=== PATIENT | male | born 1960 | race Caucasian/White ===

== ENCOUNTER → 2019-06-03 | Outpatient (CLI) | payer BC ==
[2019-06-03 09:02] LABS: Basophils # (A) 0.1 k/uL (0-0.2); Basophils % (A) 1 %; Eosinophils # (A) 0.4 k/uL (0-0.7); Eosinophils % (A) 6 %; HCT 47.8 % (39.0-53.0); HGB 15.4 gm/dL (13.0-17.5); Lymphocytes % (A) 13 %; MCH 29.5 pg (25.0-35.0); MCHC 32.2 g/dL (31.0-37.0); MCV 91.6 fL (80.0-100.0); Mean Platelet Volume 7.8; Monocytes # (A) 0.4 k/uL (0-1.0); Monocytes % (A) 6 %; Neutrophils # (A) 5.3 k/uL (1.3-7.7); Neutrophils % (A) 73 %; Platelet Count 263 k/uL (150-450); RBC 5.22 m/uL (4.30-5.90); RDW 13.5 % (11.5-15.5); WBC 7.4 k/uL (3.8-10.6)
[2019-06-03 09:10] LABS: Appearance,Urine Clear (Clear); Bilirubin,Urine Negative (Negative); Blood,Urine Negative (Negative); Color,Urine Yellow; Glucose,Urine (UA) Negative (Negative); Ketones,Urine Negative (Negative); Leukocyte Esterase,Urine Negative (Negative); Nitrite,Urine Negative (Negative); Protein,Urine Trace (Negative); Specific Gravity,Urine 1.021 (1.001-1.035); Urobilinogen,Urine <2.0 mg/dL (<2.0)
[2019-06-03 09:14] LABS: INR 0.9 (<1.2); Prothrombin Time 9.5 sec (9.0-12.0)
[2019-06-03 13:54] LABS: ALT 20 U/L (4-49); AST 28 U/L (17-59); African American GFR (CKD) >90 (>60 ml/min/1.73 sqM); Albumin 4.2 g/dL (3.5-5.0); Alkaline Phosphatase 107 U/L (38-126); Anion Gap 5 mmol/L; Blood Urea Nitrogen 19 mg/dL (9-20); Calcium 9.4 mg/dL (8.4-10.2); Carbon Dioxide 32 mmol/L (22-30); Chloride 101 mmol/L (98-107); Glucose 132 mg/dL (74-99); Non-African American GFR(CKD) >90 (>60 ml/min/1.73 sqM); Sodium 138 mmol/L (137-145); Total Bilirubin 0.7 mg/dL (0.2-1.3); Total Protein 7.1 g/dL (6.3-8.2)
[2019-06-03 13:56] LABS: Potassium 4.5 mmol/L (3.5-5.1)
[2019-06-03 15:15] LABS: Cholesterol 268 mg/dL (<200); HDL Cholesterol 40 mg/dL (40-60); LDL Cholesterol,Calculated 190 mg/dL (0-99); Triglycerides 188 mg/dL (<150)
[2019-06-03 18:26] LABS: Hemoglobin A1C 5.3 % (4.0-6.0)
== END | disposition home or self-care (01) ==
LOC: LABWHC1 08:31
PROVIDERS: ATTEND Orthopaedic Surgery Sports Medicine
DX: Z01.812 Encounter for preprocedural laboratory examination (principal); M17.12 Unilateral primary osteoarthritis, left knee; I10 Essential (primary) hypertension
CPT/HCPCS: 36415; 80053; 80061; 81003; 83036; 84443; 85025; 85610; 85730; 87070

== ENCOUNTER 2019-06-15 11:53 | Day surgery (SDC) | payer BC ==
[2019-06-09 11:10] VITALS: BMI 40.0
[~2019-06-15 11:53] MED LIST: ACETAMINOPHEN TAB 500 MG TAB PO ONE; DEXAMETHASONE SOD PHOSPHATE 10 MG/ML 1 ML VIAL IV ONE; GABAPENTIN 300 MG CAP PO ONE; HYDROmorphone 0.5 MG/0.5 ML SYRINGE IVP PRN; LIDOCAINE 1% 20 ML VIAL (10MG/ML) FOR IV START INTRADERMA PRN; MELOXICAM 7.5 MG TAB PO ONE; MIDAZOLAM 2 MG/2 ML VIAL IV PRN; ONDANSETRON 4 MG/2 ML VIAL IVP ONE; ROPIVACAINE 246.25 MG, EPINEPHrine 0.5 MG, KETOROLAC 30 MG, cloNIDine HCL/PF 80 MCG, WA... MISCELLANE ONE; SCOPOLAMINE 1.5MG/72HR PATCH TRANSDERM ONE; TRANEXAMIC ACID 1,000 MG in SODIUM CHLORIDE 0.9% 100 ML IVPB ONE; ceFAZolin 3 GM in SODIUM CHLORIDE 0.9% 100 ML IVPB ONE
[2019-06-15] MEDS: LACTATED RINGERS 1,000 ML IV SCH ×2 (12:40→19:17)
--- NOTE | 2019-06-15 14:20 | P.ANPRN ---
Procedure Note - Anesthesia - Nerve Block Performed Left Adductor Canal Infusion Time Out Performed: Yes Date of Procedure: 06/15/19 Procedure Start Time: 12:44 Procedure Stop Time: 12:54 Location of Patient: PreOp Indication: Acute Post-Operative Pain, Requested by Surgeon Sedation Type: Sedate with meaningful contact maintained Preparation: Sterile Prep Position: Supine Catheter: Indwelling Needle Types: Pajunk Needle Gauge: 21 Ultrasound used to visualize needle placement: Yes Ultrasound used to observe medication spread: Yes Blood Aspirated: No Pain Paresthesia on Injection Noted: No Resistance on Injection: Normal Image Stored and Saved: Yes Events: Uneventful and Well Tolerated (Ropivacaine 0.5% 20 mL plus dexamethasone 4 mg)
[2019-06-15] MEDS ORDERED: PHENYLEPHRINE-0.9% NACL SYG 1 MG/10 ML SYRINGE ONE (14:24)
[2019-06-15] MEDS ORDERED: KETAMINE 10 MG/ML 20 ML VIAL ONE (14:24)
[2019-06-15] MEDS ORDERED: TRANEXAMIC ACID 1,000 MG/10 ML VIAL ONE (14:24)
[2019-06-15] MEDS ORDERED: SODIUM CHLORIDE 0.9% 100 ML BAG ONE (14:24)
[2019-06-15] MEDS ORDERED: MIDAZOLAM 2 MG/2 ML VIAL ONE (14:24)
[2019-06-15] MEDS ORDERED: fentaNYL (PF) 50 MCG/ML 2 ML AMP ONE (14:24)
[2019-06-15] MEDS ORDERED: PROPOFOL 10 MG/ML 20 ML VIAL IV ONE (14:24)
[2019-06-15] MEDS ORDERED: LACTATED RINGERS 1,000 ML IV ONE (15:50)
[2019-06-15] MEDS ORDERED: ROPIVACAINE 0.2%-NS ON-Q PUMP 1,090 MG, EMPTY PAIN BALL 1 EACH MISCELLANE PRN (16:52)
[2019-06-15] MEDS ORDERED: hydrOXYzine PAMOATE 25 MG CAP PO PRN (16:54)
[2019-06-15] MEDS ORDERED: ONDANSETRON 4 MG/2 ML VIAL IVP PRN (16:54)
[2019-06-15] MEDS ORDERED: NALOXONE 0.4 MG/ML 1 ML VIAL IV PRN (16:54)
[2019-06-15] MEDS ORDERED: HYDROcodone/APAP 5-325MG 1 EACH TAB PO PRN (16:54)
[2019-06-15] MEDS ORDERED: HYDROmorphone 1 MG/ML 1 ML SYRINGE IVP PRN (16:54)
[2019-06-15] MEDS ORDERED: HYDROmorphone 0.5 MG/0.5 ML SYRINGE IVP PRN ×2 (16:54)
--- NOTE | 2019-06-15 17:11 | XR ---
EXAMINATION TYPE: XR knee limited LT DATE OF EXAM: 06/15/2019 COMPARISON: NONE HISTORY: Postop TECHNIQUE: 2 views FINDINGS: There is left knee prosthesis. Components are in anatomic position. IMPRESSION: No complicating process seen.
[2019-06-15 17:17] VITALS: RESP 16
[2019-06-15] MEDS ORDERED: SENNOSIDES-DOCUSATE SODIUM 1 EACH TAB PO SCH (21:00)
[2019-06-15] MEDS: ASPIRIN 325 MG TAB PO SCH (21:39)
[2019-06-15] MEDS: ceFAZolin 3 GM in SODIUM CHLORIDE 0.9% 100 ML IVPB SCH (23:08)
--- NOTE | 2019-06-15 23:48 | OP ---
OPERATIVE REPORT DATE OF PROCEDURE: 06/15/2019 SURGEON: Denys Brizuela MD. AUTOMOTIVE PRODUCTION WORKER: Killian lAegre PA-C PREOPERATIVE DIAGNOSIS: Left knee osteoarthrosis. POSTOPERATIVE DIAGNOSIS: Left knee osteoarthrosis. OPERATION: Left total knee arthroplasty. ANESTHESIA: Spinal with sedation. ESTIMATED BLOOD LOSS: 100 mL. TOURNIQUET: Tourniquet time was 69 minutes at 250 mmHg. COMPLICATIONS: None apparent. DRAINS: None. DISPOSITION: Post-Anesthesia Care Unit. INDICATIONS: Dharmesh is a 58-year-old male with longstanding history of left knee pain. History and physical examination are consistent with advanced left knee osteoarthrosis. He has been through significant nonoperative management up to this point. Further treatment options were discussed and he decided to go forward with left total knee arthroplasty. The risks of the procedure were discussed with him in detail. These risks include but are not limited to risk of infection, nerve damage, bleeding, pain, and a small risk of deep vein thrombosis which could lead to fatal pulmonary embolism. There is also risk of loosening of the implant which could require revision operation. The patient understands these risks. All of his questions were answered to his satisfaction. Appropriate informed consent was obtained. DESCRIPTION OF THE PROCEDURE: The patient was identified in the preoperative holding area. Surgical site was marked by both the patient and myself. He was given 3 grams of Ancef IV for prophylactic purposes. He was then transferred to the operative suite. He was placed supine on the operating room table. Spinal anesthetic was then administered and dosed per the anesthesia department without apparent complication. Examination under anesthesia was then performed. The patient was approximately 5 degrees shy of full extension. He had 90 degrees of flexion, and the medial collateral ligament, lateral collateral ligament and posterior cruciate ligaments were stable. The tourniquet was then placed high on the left upper thigh, well padded in preparation for surgery. The patient's left lower extremity was then prepped and draped in the usual sterile fashion. A standard surgical pause was then undertaken to ensure that we were operating on the correct site and that appropriate preoperative antibiotics had been given. All staff in the room were in agreement and we proceeded. The outlines of the patella were marked with a surgical pen. A planned 12 cm vertical incision centered over the patella was marked with a surgical pen. The leg was then exsanguinated with an Esmarch dressing. The knee was then flexed and the tourniquet was inflated to 250 mmHg. The total tourniquet time for the procedure was 69 minutes. Incision was then made with a 10-blade scalpel. Dissection was carried down sharply to the overlying fascia. Great care was taken to minimize the skin flaps. The knee was then exposed using a standard medial parapatellar approach. A small cuff of quadriceps tendon was then left for suturing. He was in a bit of varus preoperatively. A standard medial release was then made. The superficial medial collateral ligament was dissected off of the bone around to the posterior aspect of the proximal tibia. The medial meniscus was then excised as well. The lateral meniscus was also released anteriorly. The leg was then externally rotated. The patella was everted. The knee was flexed. The retractors were then placed to protect the collateral ligaments. I then proceeded to remove the infrapatellar fat pad. This was excised sharply tangentially with the fibers of the patellar tendon. I then proceeded to remove peripheral osteophytes. This was done with a rongeur. I then proceeded with the distal femoral resection. He did have small flexion and contraction. A planned 11 mm resection was then done. The femoral canal was then entered in the midline of the femur approximately 10 mm anterior to the origin of the posterior cruciate ligament. The josé luis was then advanced down to the center of the femur and placed intramedullary. Based on the preoperative radiographs, the angle between the anatomic and mechanical axes of the femur was approximately 4 to 5 degrees. The valgus angle of the distal femoral cutting guide was then set at 4 degrees for the left knee. The distal femoral cutting guide was then advanced over the intramedullary josé luis. This was seated firmly against the femur. I then, as mentioned, planned to take 11 mm off the distal femur. The cutting block was then secured onto the femur with pins. The jig was then removed. The distal femoral cut was made through the slot of the block. The pins were then removed. The distal femoral cutting block was removed. The accuracy of the distal femoral cuts was checked with 2 flat bars. I then proceeded with femoral sizing. The posterior referencing sizing guide was held firmly against the resected distal surface of the femur. The posterior condyles were resting on the posterior plane of the guide. The sizing stylus was then placed onto the anterior femur. The size was measured as a size 9. I then assessed for femoral rotation. The plan was for 3 degrees of external rotation. Three degrees of external rotation was placed onto the jig. These holes were then marked. I then confirmed the rotation by 3 separate methods. This was done using the epicondylar axis as well as Whitesides line and posterior referencing. It was deemed that the external rotation was proper. I then went forward with placing the femoral cutting block. This was placed over the previously placed pin holes. The César wing was then placed onto the anterior slots to ensure that we would not notch the anterior femur with the anterior femoral cut. I then proceeded with the anterior femoral cut. This was flush with the anterior cortex of the femur. The posterior cuts were then made followed by the anterior chamfer cut and then the posterior chamfer cut. The cutting block was then removed. Throughout the resection, the collateral ligaments were protected with retractors. I then placed a trial size 9 femur. It fit very nicely medial to lateral and fit flush with the distal end of the femur. The drill holes were then made. I then proceeded with the tibial cut. I planned for a cruciate-retaining knee. The guide was placed and set for varus, valgus and for slope. The height was set for an approximate 2 mm resection from the medial tibial plateau, which was the lower side. I was happy with the alignment and the amount of resection. The cutting block was then pinned to the proximal tibia. The alignment josé luis was removed and the proximal tibia was resected with a reciprocating saw. Again this was done with retractors protecting the collateral ligaments as well as the posterior cruciate ligament. I then proceeded to evaluate the flexion and extension gaps. A 10 mm block was then placed. The flexion and extension gaps were equal. I then proceeded with resection of the posterior osteophytes. He had very extensive posterior osteophytes. This was done using a curved osteotome. This resected the posterior osteophytes, and posterior capsule stripping was done off the posterior aspect of the femur at this time. The osteophytes were then removed. I then proceeded with resection of the patella. The thickness of the patella was measured using the caliper. The thickness of the patella was 26 mm. The thickness of the anticipated patellar dome was taken into account. The resection was then performed and confirmed to be equal in 4 quadrants using a caliper. Approximately 14 mm of bone remained after resection. A 35 x 9 mm standard patellar trial was then placed. The holes were drilled and the trial was then placed. I then proceeded with sizing the tibial plate. A size G tibial plate fit very nicely. I then placed the trial femur, the tibial tray and the patellar button. A 10 mm trial tibial insert was also placed. The components fit very nicely. He had full extension and flexion. The extension and flexion gaps were equal and stable to both varus and valgus stress. The patella tracked appropriately. Tibial tray rotation was marked with a Bovie. This was externally rotated properly. I then proceeded with tibial preparation. I first drilled the femoral holes and removed the femoral component. The tibial tray was then set for proper external rotation as well as mediolateral placement onto the tibia. It was then pinned into place. I then proceeded with punching the keel. I then decided to proceed with cementing of all of our components. The knee was thoroughly irrigated with sterile saline solution via pulse lavage. The lateral geniculate artery was identified and cauterized. All blood was removed from the bone of the tibia, femur and patella with pulse lavage. I then proceeded with cementing. Two packs of antibiotic bone cement were prepared on the back table by the surgical technology instructor. I then proceeded with cementing of the tibia first. The cement was impacted into the keel as well as deeply seated into the bone. A second coat of cement was then placed. The tibia was then impacted into place. Excess cement was removed with Jennifer's and Joker's. I then proceeded with cementing of the femoral component. The femoral component was also cemented using standard technique. Excess cement was removed. A 10 mm trial insert was then placed into the knee. It was brought into full extension with a constant axial load placed until the cement had hardened. The patellar component was then cemented. This was held firmly with a compressive device until the cement had dried. When the cement had dried, the knee was taken out of extension. All excess cement was removed from around the prosthesis. I then trialed with a 10 mm insert. The flexion and extension gaps were appropriate. The knee was stable. It came into full extension. I decided to go forward with a 10 mm cross-linked cruciate-retaining tibial insert. Polyethylene was then placed onto the tibial tray and locked into place. The knee was then reduced. The knee was again further irrigated with sterile saline solution with antibiotic added. The tourniquet was then deflated. The total tourniquet time for the procedure was 69 minutes at 250 mmHg. Final components were a Cecy Persona size 9 cruciate-retaining femoral component, a size G tibial tray, a 10 mm medial-congruent cruciate-retaining polyethylene insert, and a 35 x 9 mm patella. I then proceeded with closure. Again the knee was thoroughly irrigated. The quadriceps tendon and the medial retinaculum were reapproximated with a #2 Ethibond suture. The extensor mechanism was then closed with a running #2 Quill suture. Subcutaneous tissues were closed with 2-0 Vicryl interrupted suture. The skin was closed with a running 3-0 Quill suture. Dermabond was applied to the incision. Sterile compressive dressings were then applied. All sponge and needle counts were deemed correct prior to closure. The patient tolerated the procedure without apparent complication. He was transferred to the recovery room in stable condition. MMCHELI / SOON: [id number] /
[2019-06-15] MEDS: HYDROcodone/APAP 5-325MG 1 EACH TAB PO PRN (23:58)
--- NOTE | 2019-06-16 02:24 | P.CONS ---
History of Present Illness - Reason for Consult Consult date: 06/15/19 medical management Requesting physician: Denys Brizuela - Chief Complaint Consult medical management - History of Present Illness The patient is a 58-year-old male with a past medical history of essential hypertension and severe left knee osteoarthritis who is admitted to the primary orthopedic service and is postop day #0 after having a left total knee arthroplasty secondary to severe left knee osteoarthritis that have been refractory to conventional nonsurgical treatment methods. The patient is doing well and he denies taking his daily medications this morning, he denies any chest pain and denies shortness of breath, he has not been up and ambulatory, he is able to wiggle his toes. Review of Systems Pertinent positives per HPI all other review of system is otherwise negative Past Medical History Past Medical History: Hypertension, Osteoarthritis (OA) History of Any Multi-Drug Resistant Organisms: None Reported Past Surgical History: Orthopedic Surgery Additional Past Surgical History / Comment(s): left knee arthroscopy x3, Past Anesthesia/Blood Transfusion Reactions: No Reported Reaction Past Psychological History: No Psychological Hx Reported Smoking Status: Former smoker Past Alcohol Use History: Occasional Additional Past Alcohol Use History / Comment(s): quit smoking 15 yrs ago, smoked for 6-7 yrs, < 1 PPD Past Drug Use History: Marijuana Additional Drug Use History / Comment(s): occ use - Past Family History Mother Family Medical History: Cancer Medications and Allergies Home Medications Medication Instructions Recorded Confirmed Type Hydrochlorothiazide [Hydrodiuril] 12.5 mg PO DAILY 06/09/19 06/15/19 History traMADol HCL [Ultram] 50 mg PO QID PRN 06/09/19 06/15/19 History Allergies Allergy/AdvReac Type Severity Reaction Status Date / Time No Known Allergies Allergy Verified 06/15/19 12:32 Physical Exam Vitals: Vital Signs Temp Pulse Pulse Resp BP Pulse Ox 06/15/19 17:18 73 16 137/74 98 06/15/19 17:03 78 16 144/76 98 06/15/19 16:48 97.1 F L 88 20 129/71 96 06/15/19 12:55 74 16 168/96 98 06/15/19 12:35 97.7 F 97 18 180/109 95 Intake and Output 06/15/19 06/15/19 06/15/19 06:59 14:59 22:59 Intake Total 1100 600 Output Total 100 Balance 1100 500 Intake: IV 1100 600 Output: Estimated Blood Loss 100 Other: Weight 138 kg 138 kg Constitutional: No acute distress, conversant, pleasant Eyes: Anicteric sclerae, moist conjunctiva, no lid-lag, PERRLA ENMT: NC/AT,Oropharynx clear, no erythema, exudates Neck:Supple, FROM, no masses, or JVD, No carotid bruits; No thyromegaly Lungs: Clear to auscultation, Clear to percussion, Normal respiratory effort, no accessory muscle use Cardiovascular: Heart regular in rate and rhythm, No murmurs, gallops, or rubs no peripheral edema Abdominal: Soft Nontender, nom distended, no guarding, no rebound or rigidity, Normoactive bowel sounds No hepatomegaly, No splenomegaly, No palpable mass No abdominal wall hernia noted Skin: Normal temperature, tone, texture, turgor, No induration No subcutaneous nodules, No rash, lesions, No ulcers Extremities:No digital cyanosis No clubbing, Pedal pulses intact and symmetrical Radial pulses intact and symmetrical, No calf tenderness, neurovascularly intact, able to wiggle his toes Psychiatric: Alert and oriented to person, place and time, Appropriate affect Intact judgement Neuro: Muscles Strength 5/5 in all 4 extremities, Sensation to light touch grossly present throughout, Cranial nerves II-XII grossly intact. No focal sensory deficits Assessment and Plan Assessment: Essential hypertension History of severe left knee osteoarthritis Status post left knee arthroplasty Plan: Patient seen and examined and and is postop day #0 after having left knee arthroplasty secondary to severe left knee osteoarthritis, currently patient's pain is well-controlled he does have a left adductor canal nerve block in place. We'll defer all further pain management to primary team. Agree with continuing perioperative antibiotics. Patient is currently hemodynamically stable we'll restart his home hypertensive regimen with HCTZ in the a.m. continue to follow his clinical course We appreciate opportunity to be involved in this patient's care. For further questions please hesitate to contact the [facility], [place] inpatient team
[2019-06-16] MEDS: LACTATED RINGERS 1,000 ML IV SCH ×2 (03:03)
--- NOTE | 2019-06-16 06:20 | P.PN ---
Progress Note - Text Progress Note Date: 06/16/19 POD 1 from TKR with adductor canal catheter. Pump is running and providing adequate analgesia, he is having minimal pain in the posterior portion of the knee, the anterior knee is not hurting. Used one dose of pain medication last night. Able to ambulate and able to void. Patient will continue with catheter at home if d/c today, reach out to anesthesia with questions. site appears clean and dry, no erythema.
[2019-06-16 07:45] VITALS: BP 146/78; PULSE 76; TEMP 97.8
[2019-06-16] MEDS: HYDROcodone/APAP 5-325MG 1 EACH TAB PO PRN ×2 (07:45→14:36)
[2019-06-16] MEDS: ASPIRIN 325 MG TAB PO SCH (07:46)
[2019-06-16 07:49] LABS: Basophils % (A) 0 %; Eosinophils % (A) 0 %; HCT 35.8 % (39.0-53.0); Lymphocytes # (A) 0.8 k/uL (1.0-4.8); Lymphocytes % (A) 6 %; MCH 30.3 pg (25.0-35.0); MCHC 33.8 g/dL (31.0-37.0); MCV 89.6 fL (80.0-100.0); Mean Platelet Volume 8.6; Monocytes # (A) 0.6 k/uL (0-1.0); Monocytes % (A) 4 %; Neutrophils # (A) 12.1 k/uL (1.3-7.7); Neutrophils % (A) 88 %; Platelet Count 252 k/uL (150-450); RDW 13.6 % (11.5-15.5); WBC 13.6 k/uL (3.8-10.6)
[2019-06-16] MEDS: ceFAZolin 3 GM in SODIUM CHLORIDE 0.9% 100 ML IVPB SCH (07:49)
[2019-06-16 07:51] LABS: HGB 12.1 gm/dL (13.0-17.5)
[2019-06-16] MEDS ORDERED: HYDROCHLOROTHIAZIDE 12.5 MG CAP PO SCH (09:00)
--- NOTE | 2019-06-16 12:44 | P.DS ---
Providers Expected date of discharge: 06/16/19 Attending physician: Denys Brizuela Consults: 06/15/19 16:59 Consult Physician Routine Consulting Provider: Michael Perez Consult Reason/Comments: Medial management Do you want consulting provider notified?: Yes Primary care physician: Isrrael Jesus [facility] Course: This is a 58-year-old male who was last seen in our office for evaluation regarding left knee pain. He has a history of degenerative arthritis of the left knee and presents to discuss surgical options. After discussion with Dr. Brizuela and consideration patient decided to proceed with left total knee arthroplasty. The patient is seen preoperatively by his family physician and cleared for surgery. Patient is admitted to [facility] for total left knee arthrop lasty. Procedure is performed without complication or sequelae. The patient is doing well post-operative. Vital signs and labs are stable on postoperative day #1. He is ambulating with a walker with minimal issue. Patient is examined bedside this morning. He states his pain is currently well controlled on the left knee. He has not yet been up with physical therapy. He is tolerating his diet well. He overall feels well. Per physical therapy, is doing well with ambulation with a walker, there are no concerns from a physical therapy standpoint. Patient denies chest pain, shortness of breath, nausea, vomiting, fevers, chills. Vital signs stable. On examination, the patient is lying in bed in no apparent distress. He is alert and oriented 3. On inspection of the left knee, there is a clean, dry, intact surgical dressing in place. Dressing is taken down and reveals a benign- appearing incision. There is no surrounding erythema, warmth, or drainage. The patient has good strength and motion of his left ankle. Left lower extremity is warm and well perfused with brisk capillary refill distally. Neurovascular is intact of the left lower extremity. The patient is discharged to home with home health services on 06/16/19, pending medical clearance. Please see discharge orders. Please refer to the med rec for accurate list of medications. Patient Condition at Discharge: Fair Plan - Discharge Summary Discharge Rx Participant: Yes New Discharge Prescriptions: New Aspirin 325 mg PO BID 30 Days #60 tab Docusate [Colace] 100 mg PO BID #60 capsule Hydrocodone/Acetaminophen [Fishtail 5-325] 1 - 2 tab PO Q6H PRN #50 tab PRN Reason: Pain No Action traMADol HCL [Ultram] 50 mg PO QID PRN PRN Reason: Pain Hydrochlorothiazide [Hydrodiuril] 12.5 mg PO DAILY Discharge Medication List Hydrochlorothiazide [Hydrodiuril] 12.5 mg PO DAILY 06/09/19 [History] traMADol HCL [Ultram] 50 mg PO QID PRN 06/09/19 [History] Aspirin 325 mg PO BID 30 Days #60 tab 06/16/19 [Rx] Docusate [Colace] 100 mg PO BID #60 capsule 06/16/19 [Rx] Hydrocodone/Acetaminophen [Fishtail 5-325] 1 - 2 tab PO Q6H PRN #50 tab 06/16/19 [Rx] Follow up Appointment(s)/Referral(s): [facility], [NON-STAFF] - As Needed Denys Brizuela MD [STAFF PHYSICIAN] - 10 Days Activity/Diet/Wound Care/Special Instructions: Weight-bearing as tolerated on your operative leg with a walker. Ice and elevate operative leg for swelling and pain control. Daily dressing changes. Take pain medication as prescribed. Take Colace and drink water to prevent constipation. Aspirin 325 mg twice a day for a month for DVT prophylaxis. Follow-up appointment with Dr. Brizuela in 10 days. Call the office with any questions or concerns, . Discharge Disposition: HOME WITH HOME HEALTH SERVICES
== END 2019-06-16 15:08 | disposition home health service (06) ==
LOC: OR 11:53 → 4SSUR 16:44 → OR 06-16 15:08
PROVIDERS: ATTEND Orthopaedic Surgery Sports Medicine
DX: M17.0 Bilateral primary osteoarthritis of knee (principal); I10 Essential (primary) hypertension; E66.01 Morbid (severe) obesity due to excess calories; Z87.891 Personal history of nicotine dependence; Z79.899 Other long term (current) drug therapy; Z97.3 Presence of spectacles and contact lenses; Z68.37 Body mass index [BMI] 37.0-37.9, adult; Z80.9 Family history of malignant neoplasm, unspecified; Z82.49 Family history of ischemic heart disease and other diseases of the circulatory system
CPT/HCPCS: 97161; 64448; 76942; 85025; 88300; 73560; 27447; C1776; C1713; J2250; J0171; J1100; J0690 ×2; J2405; J1885; J2795 ×2; J0735

== ENCOUNTER 2022-10-15 18:05 | Emergency (ER) | payer MEDICARE, OTHER ==
[2022-10-15 18:14] VITALS: RESP 18; TEMP 98.6
--- NOTE | 2022-10-15 19:00 | ED ---
General Adult HPI - General Chief complaint: Recheck/Abnormal Lab/Rx Stated complaint: aneurysm,sent by PCP Time Seen by Provider: 10/15/22 18:43 Source: patient, family Mode of arrival: ambulatory Limitations: no limitations - History of Present Illness Initial comments: This patient is a 62-year-old man who presents at the request of his physician to have further evaluation for an abdominal aortic aneurysm. The patient states that he went to have an MRI performed yesterday related to chronic back pains. The patient states that he received a call telling him that an aneurysm of his aorta was found and that he needed to go to emergency. The patient states he is not having any symptoms that he believes are related that. He is not having abdominal pain. He denies any pain or color change to the legs. No change in urination or bowel function. He does have chronic back pain but states this is unchanged Onset/Timin -: days(s) Location: back Improves with: none Worsens with: none Associated Symptoms: denies other symptoms Treatments Prior to Arrival: none - Related Data Home Medications Medication Instructions Recorded Confirmed Atorvastatin [Lipitor] 40 mg PO DAILY 10/15/22 10/15/22 Ibuprofen [Motrin] 800 mg PO Q8H 10/15/22 10/15/22 hydroCHLOROthiazide [Hydrodiuril] 25 mg PO DAILY 10/15/22 10/15/22 lisinopriL [Zestril] 20 mg PO DAILY 10/15/22 10/15/22 metFORMIN HCL 500 mg PO BID 10/15/22 10/15/22 Allergies Allergy/AdvReac Type Severity Reaction Status Date / Time No Known Allergies Allergy Verified 10/15/22 19:29 Review of Systems ROS Statement: Those systems with pertinent positive or pertinent negative responses have been documented in the HPI. ROS Other: All systems not noted in ROS Statement are negative. Constitutional: Denies: fever, chills, weakness Cardiovascular: Denies: chest pain, palpitations, edema, syncope Gastrointestinal: Denies: abdominal pain, nausea, vomiting, diarrhea Musculoskeletal: Reports: back pain Skin: Denies: rash Neurological: Denies: headache, weakness, numbness, paresthesias Past Medical History Past Medical History: Hyperlipidemia, Hypertension Additional Past Medical History / Comment(s): DDD History of Any Multi-Drug Resistant Organisms: None Reported Additional Past Surgical History / Comment(s): left knee replacement Past Psychological History: No Psychological Hx Reported Smoking Status: Former smoker Past Alcohol Use History: Occasional Past Drug Use History: Marijuana General Exam Limitations: no limitations General appearance: alert, in no apparent distress Head exam: Present: atraumatic, normocephalic Eye exam: Present: normal appearance. Absent: scleral icterus, conjunctival injection Neck exam: Present: normal inspection Respiratory exam: Present: normal lung sounds bilaterally. Absent: respiratory distress, wheezes, rales, rhonchi, stridor Cardiovascular Exam: Present: regular rate, normal rhythm, normal heart sounds. Absent: systolic murmur, diastolic murmur, rubs, gallop GI/Abdominal exam: Present: soft. Absent: distended, tenderness, guarding, rebound, rigid, mass Extremities exam: Present: normal inspection, normal capillary refill. Absent: pedal edema, calf tenderness Back exam: Present: normal inspection. Absent: CVA tenderness (R), CVA tenderness (L) Neurological exam: Present: alert. Absent: motor sensory deficit Skin exam: Present: warm, dry, intact, normal color. Absent: rash Course Vital Signs 10/15/22 10/15/22 18:10 21:51 Temperature 98.6 F Pulse Rate 101 H 80 Respiratory 18 18 Rate Blood Pressure 154/86 142/86 O2 Sat by Pulse 96 97 Oximetry EKG Findings - EKG Results: EKG: interpreted by [facility], sinus rhythm (Rate 93 bpm), normal axis, normal QRS - Blocks, Grady, Hypertrophy, ST Abn: Repolarization changes or abnormalities: nonspecific abnormality, ST segment, and/or T wave Medical Decision Making - Medical Decision Making Was pt. sent in by a medical professional or institution (, PA, DIVING SUPERVISOR, urgent care, hospital, or jail...) When possible be specific @ -Patient was sent in by physician to have further evaluation related to aneurysm found on MRI Did you speak to anyone other than the patient for history (EMS, parent, family, police, friend...)? What history was obtained from this source @ -[No] Did you review nursing and triage notes (agree or disagree)? Why? @ -[I reviewed and agree with nursing and triage notes] Were old charts reviewed (outside hosp., previous admission, EMS record, old EKG, old radiological studies, urgent care reports/EKG's, jail records)? Report findings @ -[The MRI result was reviewed Differential Diagnosis (chest pain, altered mental status, abdominal pain women, abdominal pain men, vaginal bleeding, weakness, fever, dyspnea, syncope, headache, dizziness, GI bleed, back pain, seizure, CVA, palpatations, mental health, musculoskeletal)? @ -[Differential Abdominal Pain Men: Appendicitis, cholecystitis, diverticulosis, ischemic bowel, pancreatitis, hepatitis, UTI, gastroenteritis, AAA, incarcerated hernia, bowel obstruction, c onstipation, inflammatory bowel, hepatitis, peptic ulcer disease, splenic infarction, perforated viscus, testicular torsion, this is not meant to be an all-inclusive list EKG interpreted by me (3pts min.). @ -[ X-rays interpreted by me (1pt min.). @ -[None done] CT interpreted by me (1pt min.). @ -[As above U/S interpreted by me (1pt. min.). @ -[None done] What testing was considered but not performed or refused? (CT, X-rays, U/S, labs)? Why? @ -[None] What meds were considered but not given or refused? Why? @ -[None] Did you discuss the management of the patient with other professionals (professionals i.e. , PA, DIVING SUPERVISOR, lab, RT, psych nurse, social economist, billet bed operator, teacher, planned giving officer, case coordinator)? Give summary @ -[Case was discussed with the vascular surgeon on-call Was smoking cessation discussed for >3mins.? @ -[No] Was critical care preformed (if so, how long)? @ -[No] Were there social determinants of health that impacted care today? How? (Homelessness, low income, unemployed, alcoholism, drug addiction, transporta tion, low edu. Level, literacy, decrease access to med. care, custodial, rehab)? @ -[No] Was there de-escalation of care discussed even if they declined (Discuss DNR or withdrawal of care, Hospice)? DNR status @ -[No] What co-morbidities impacted this encounter? (DM, HTN, Smoking, COPD, CAD, Cancer, CVA, ARF, Chemo, Hep., AIDS, mental health diagnosis, sleep apnea, morbid obesity)? @ -[None] Was patient admitted / discharged? Hospital course, mention meds given and route, prescriptions, significant lab abnormalities, going to OR and other pertinent info. @ -[Patient is a 62-year-old man with AAA as incidental finding on MRI of the back. We discussed the appropriate further care and follow-up with the vascular surgeon as well as return parameters. Undiagnosed new problem with uncertain prognosis? @ -[No] Drug Therapy requiring intensive monitoring for toxicity (Heparin, Nitro, Insulin, Cardizem)? @ -[No] Were any procedures done? @ -[No] Diagnosis/symptom? @ -Abdominal aortic aneurysm Acute, or Chronic, or Acute on Chronic? @ -[Suspect chronic Uncomplicated (without systemic symptoms) or Complicated (systemic symptoms)? @ -[Uncomplicated Side effects of treatment? @ -[No] Exacerbation, Progression, or Severe Exacerbation? @ -[No] Poses a threat to life or bodily function? How? (Chest pain, [place], [place], pneumonia, PE, COPD, DKA, ARF, appy, cholecystitis, CVA, Diverticulitis, Homicidal, Suicidal, threat to staff... and all critical care pts) @ -[There is low risk currently, patient to follow-up with the vascular surgeon - Lab Data Result diagrams: 10/15/22 18:14 10/15/22 18:14 Lab Results 10/15/22 10/15/22 Range/Units 18:14 18:14 WBC 9.8 (3.8-10.6) k/uL RBC 4.71 (4.30-5.90) m/uL Hgb 14.1 (13.0-17.5) gm/dL Hct 43.1 (39.0-53.0) % MCV 91.4 (80.0-100.0) fL MCH 30.0 (25.0-35.0) pg MCHC 32.8 (31.0-37.0) g/dL RDW 13.5 (11.5-15.5) % Plt Count 261 (150-450) k/uL MPV 8.1 Neutrophils % 79 % Lymphocytes % 11 % Monocytes % 5 % Eosinophils % 3 % Basophils % 1 % Neutrophils # 7.7 (1.3-7.7) k/uL Lymphocytes # 1.1 (1.0-4.8) k/uL Monocytes # 0.5 (0-1.0) k/uL Eosinophils # 0.3 (0-0.7) k/uL Basophils # 0.1 (0-0.2) k/uL Sodium 140 (137-145) mmol/L Potassium 4.1 (3.5-5.1) mmol/L Chloride 105 (98-107) mmol/L Carbon Dioxide 28 (22-30) mmol/L Anion Gap 7 mmol/L BUN 17 (9-20) mg/dL Creatinine 1.14 (0.66-1.25) mg/dL Est GFR (CKD-EPI)AfAm 81 (>60 ml/min/1.73 sqM) Est GFR (CKD-EPI)NonAf 70 (>60 ml/min/1.73 sqM) Glucose 136 H (74-99) mg/dL Calcium 8.9 (8.4-10.2) mg/dL Total Bilirubin 0.8 (0.2-1.3) mg/dL AST 36 (17-59) U/L ALT 30 (4-49) U/L Alkaline Phosphatase 104 (38-126) U/L Total Protein 6.9 (6.3-8.2) g/dL Albumin 4.1 (3.5-5.0) g/dL Disposition Clinical Impression: Infrarenal abdominal aortic aneurysm (AAA) without rupture Disposition: HOME SELF-CARE Condition: Good Is patient prescribed a controlled substance at d/c from ED?: No Referrals: Bayron Byrd MD [Primary Care Provider] - 1-2 days Richmond Tarango DO [Doctor of Osteopathic Medicine] - 1-2 days
[2022-10-15 19:07] LABS: Basophils # (A) 0.1 k/uL (0-0.2); Basophils % (A) 1 %; Eosinophils # (A) 0.3 k/uL (0-0.7); Eosinophils % (A) 3 %; HCT 43.1 % (39.0-53.0); HGB 14.1 gm/dL (13.0-17.5); Lymphocytes # (A) 1.1 k/uL (1.0-4.8); Lymphocytes % (A) 11 %; MCHC 32.8 g/dL (31.0-37.0); MCV 91.4 fL (80.0-100.0); Mean Platelet Volume 8.1; Monocytes # (A) 0.5 k/uL (0-1.0); Monocytes % (A) 5 %; Neutrophils # (A) 7.7 k/uL (1.3-7.7); Neutrophils % (A) 79 %; Platelet Count 261 k/uL (150-450); RBC 4.71 m/uL (4.30-5.90); RDW 13.5 % (11.5-15.5); WBC 9.8 k/uL (3.8-10.6)
[2022-10-15] MEDS ORDERED: LABETALOL 5 MG/ML VIAL MDV IVP STA (19:10)
[2022-10-15 19:28] LABS: ALT 30 U/L (4-49); AST 36 U/L (17-59); African American GFR (CKD) 81 (>60 ml/min/1.73 sqM); Albumin 4.1 g/dL (3.5-5.0); Alkaline Phosphatase 104 U/L (38-126); Anion Gap 7 mmol/L; Blood Urea Nitrogen 17 mg/dL (9-20); Calcium 8.9 mg/dL (8.4-10.2); Carbon Dioxide 28 mmol/L (22-30); Chloride 105 mmol/L (98-107); Glucose 136 mg/dL (74-99); Non-African American GFR(CKD) 70 (>60 ml/min/1.73 sqM); Potassium 4.1 mmol/L (3.5-5.1); Sodium 140 mmol/L (137-145); Total Bilirubin 0.8 mg/dL (0.2-1.3); Total Protein 6.9 g/dL (6.3-8.2)
--- NOTE | 2022-10-15 21:10 | CT ---
EXAMINATION TYPE: CT angio tho/abd W Run Off CT DLP: 3509.8 mGycm, Automated exposure control for dose reduction was used. DATE OF EXAM: 10/15/2022 8:42 PM COMPARISON: None CLINICAL INDICATION:Male, 62 years old with history of AAA evaluation; [facility], AAA evaluation. TECHNIQUE: Multiple thin slice sub-millimeter images were obtained through the abdomen, pelvis, and l ower extremities after administration of contrast. 3-D reconstructed images and maximum intensity pr ojection images were obtained of the abdomen, pelvis, and lower extremities. CT Contrast: Contrast used:100 ml mL of Isovue 370 with IV Contrast, Oral contrast used: None FINDINGS: CTA Abdomen and pelvis: No evidence for intramural hematoma on noncontrast imaging. There is infraren al fusiform dilation of the aorta measuring up to 7.0 x 6.5 cm. Scattered atherosclerosis is seen thr oughout the vasculature. No evidence for ascending or descending thoracic aorta aneurysm. The infrare nal aneurysm demonstrates mural thrombus. The origins of the celiac axis, superior mesenteric artery and inferior mesenteric artery are patent. There are 2 left renal arteries and one right renal artery which appear patent. The Common iliac and external iliac arteries are patent.. The common femoral and superficial femoral génesis laisha are patent. There is minimal atherosclerosis throughout the arterial vasculature. Left popliteal artery is limited due to streak artifact. The right popliteal artery appears patent. Poor contrast b olus limits evaluation of the legs. Is at least 2 vessels crossing the legs bilaterally. LOWER CHEST: No evidence of focal consolidation, pneumothorax or pleural effusion. LIVER: Unremarkable GALLBLADDER AND BILE DUCTS: Unremarkable. PANCREAS: Unremarkable. SPLEEN: Unremarkable. ADRENAL GLANDS: Unremarkable. KIDNEYS AND URETERS: No evidence of hydronephrosis or renal calculus. Left renal cortical scarring PELVIS BLADDER: Unremarkable REPRODUCTIVE: Unremarkable. ABDOMEN & PELVIS STOMACH AND BOWEL: No evidence of bowel obstruction. Scattered colonic diverticula. The appendix is n ormal. PERITONEUM: No evidence of pneumoperitoneum or free fluid. MUSCULOSKELETAL: Moderate disc degeneration changes are present throughout the thoracolumbar spine. T here is similar sclerosis of the spinous processes. LYMPH NODES: No gross evidence for lymphadenopathy. SOFT TISSUE/ABDOMINAL WALL: Fat-containing umbilical hernia. Bilateral fat-containing inguinal hernia s. IMPRESSION 1. Infrarenal abdominal aorta measuring up to 7.0 cm. 2. No evidence for thoracic aortic aneurysm. 3. Atherosclerotic disease involving abdominal aorta and lower extremity vasculature. 4. At least two vessels are seen crossing the ankle joint. 5. Colonic diverticulosis. 6. Fat-containing umbilical hernia. 7. 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
[2022-10-15 22:01] VITALS: BP 142/86; PULSE 80
== END 2022-10-15 21:40 | disposition home or self-care (01) ==
LOC: EC 18:05
DX: I71.43 Infrarenal abdominal aortic aneurysm, without rupture (principal); E78.5 Hyperlipidemia, unspecified; I10 Essential (primary) hypertension; Z87.891 Personal history of nicotine dependence; F12.90 Cannabis use, unspecified, uncomplicated; Z79.899 Other long term (current) drug therapy
CPT/HCPCS: 36415; 93005; 80053; 85025; 75635; 71275; 99284; 96374; Q9967

== ENCOUNTER 2022-11-20 10:07 | Inpatient (IN) | payer MEDICARE, OTHER ==
[2022-11-17 14:04] VITALS: BMI 40.6
[~2022-11-20 10:07] MED LIST changes: -ACETAMINOPHEN TAB 500 MG TAB PO ONE; -DEXAMETHASONE SOD PHOSPHATE 10 MG/ML 1 ML VIAL IV ONE; +DEXAMETHASONE SOD PHOSPHATE 4 MG/ML 1 ML VIAL IV ONE; -GABAPENTIN 300 MG CAP PO ONE; -LIDOCAINE 1% 20 ML VIAL (10MG/ML) FOR IV START INTRADERMA PRN; -MELOXICAM 7.5 MG TAB PO ONE; -MIDAZOLAM 2 MG/2 ML VIAL IV PRN; -ROPIVACAINE 246.25 MG, EPINEPHrine 0.5 MG, KETOROLAC 30 MG, cloNIDine HCL/PF 80 MCG, WA... MISCELLANE ONE; -SCOPOLAMINE 1.5MG/72HR PATCH TRANSDERM ONE; +SODIUM CHLORIDE 0.9% 1,000 ML in EMPTY BAG 1 BAG IV ONE; -TRANEXAMIC ACID 1,000 MG in SODIUM CHLORIDE 0.9% 100 ML IVPB ONE; -ceFAZolin 3 GM in SODIUM CHLORIDE 0.9% 100 ML IVPB ONE; +ceFAZolin 3 GM in SODIUM CHLORIDE 0.9% 100 ML IVPB PRN
[2022-11-20 10:52] LABS: Glucose,Whole Blood 127 mg/dL (70-110)
[2022-11-20] MEDS ORDERED: MIDAZOLAM 2 MG/2 ML VIAL IVP ONE (11:25)
[2022-11-20 11:40] LABS: Basophils % (A) 0 %; Eosinophils # (A) 0.3 k/uL (0-0.7); Eosinophils % (A) 3 %; HCT 41.4 % (39.0-53.0); HGB 14.1 gm/dL (13.0-17.5); Lymphocytes % (A) 12 %; MCH 30.9 pg (25.0-35.0); MCHC 34.1 g/dL (31.0-37.0); MCV 90.6 fL (80.0-100.0); Mean Platelet Volume 8.2; Monocytes # (A) 0.4 k/uL (0-1.0); Monocytes % (A) 5 %; Neutrophils # (A) 6.8 k/uL (1.3-7.7); Neutrophils % (A) 79 %; Platelet Count 261 k/uL (150-450); RBC 4.57 m/uL (4.30-5.90); RDW 14.1 % (11.5-15.5); WBC 8.6 k/uL (3.8-10.6)
[2022-11-20] MEDS ORDERED: NEOSTIGMINE 1 MG/ML 10 ML VIAL ONE (11:48)
[2022-11-20] MEDS ORDERED: PHENYLEPHRINE 10 MG/ML VIAL ONE (11:48)
[2022-11-20] MEDS ORDERED: SUCCINYLCHOLINE CHLORIDE 200 MG/10 ML VIAL IV ONE (11:48)
[2022-11-20] MEDS ORDERED: LIDOCAINE 4% LTA KIT (4 ML) TOPICAL ONE (11:48)
[2022-11-20] MEDS ORDERED: PROPOFOL 10 MG/ML 20 ML VIAL IV ONE (11:48)
[2022-11-20] MEDS ORDERED: ePHEDrine 50 MG/ML 1 ML VIAL ONE (11:48)
[2022-11-20] MEDS ORDERED: fentaNYL (PF) 50 MCG/ML 2 ML AMP ONE (11:48)
[2022-11-20] MEDS ORDERED: GLYCOPYRROLATE 0.2 MG/ML 2 ML VIAL ONE (11:48)
[2022-11-20] MEDS ORDERED: MIDAZOLAM 2 MG/2 ML VIAL ONE (11:48)
[2022-11-20] MEDS ORDERED: PROTAMINE SULFATE 10 MG/ML 5 ML VIAL IV ONE (11:48)
[2022-11-20] MEDS ORDERED: ROCURONIUM 10 MG/ML (5 ML VIAL) IV ONE (11:48)
[2022-11-20] MEDS ORDERED: WATER FOR INJECTION, STERILE 10 ML VIAL IV ONE (11:48)
[2022-11-20] MEDS ORDERED: VASOPRESSIN 20 UNIT/ML 1 ML VIAL ONE (11:48)
[2022-11-20] MEDS ORDERED: HEPARIN SODIUM,PORCINE 10,000 UNIT/ML 1 ML VIAL ONE (11:48)
[2022-11-20 11:54] LABS: African American GFR (CKD) >90 (>60 ml/min/1.73 sqM); Anion Gap 6 mmol/L; Blood Urea Nitrogen 18 mg/dL (9-20); Calcium 9.1 mg/dL (8.4-10.2); Carbon Dioxide 28 mmol/L (22-30); Chloride 105 mmol/L (98-107); Glucose 121 mg/dL (74-99); Non-African American GFR(CKD) 82 (>60 ml/min/1.73 sqM); Potassium 4.1 mmol/L (3.5-5.1); Sodium 139 mmol/L (137-145)
--- NOTE | 2022-11-20 12:01 | P.ANPRN ---
Procedure Note - Anesthesia - Invasive Line Left Arterial Line Time Out Performed: Yes Date of Procedure: 11/20/22 Location of Patient: PreOp Arterial Line Location: Radial Ultrasound Used: No Purpose - Visualization and Identification of Vasculature: No Image Stored and Saved: No Narrative: Central line placement per sterile protocol utilized. Informed consent obtained from the patient. Procedure was performed under complete aseptic precautions. The left wrist is slightly extended and placed on a roll of cloth. Radial artery palpated and appeared to have a intact collateral circulation. Front of the wrist was cleaned with ChloraPrep. It was draped and 2 mL of 1% lidocaine was infiltrated and ability into the front of the wrist. A 20-gauge two and half inch Arrow arterial catheter was inserted and a bright red blood/back was noticed. It was connected to the pressure monitoring line and the flashback was confirmed. The line was sutured into the skin. Tegaderm dressing was applied. Patient tolerated the procedure very well with no apparent complications.
[2022-11-20] MEDS ORDERED: IOPAMIDOL-250 100ML BTL INTRAARTER ONE (13:44)
[2022-11-20] MEDS ORDERED: LACTATED RINGERS 1,000 ML IV ONE (14:08)
[2022-11-20] MEDS ORDERED: NALOXONE 0.4 MG/ML 1 ML VIAL IVP PRN (14:10)
[2022-11-20] MEDS ORDERED: ALPRAZolam 0.25 MG TAB PO PRN (14:10)
--- NOTE | 2022-11-20 14:26 | P.OP ---
Date of Procedure: 11/20/22 Preoperative Diagnosis: 7 cm infrarenal abdominal aortic aneurysm. Postoperative Diagnosis: Same. Procedure(s) Performed: 1: Ultrasound-guided cannulation of the common femoral artery bilaterally with placement of Perclose device. 2: Placement of aorto by iliac endograft. Implants: Aortic endograft system, [employer] Anesthesia: CELESTEA Surgeon: Richmond Tarango Estimated Blood Loss (ml): 75 Pathology: other Condition: stable Disposition: floor Indications for Procedure: Patient is a 62-year-old male who was found to be suffering from a 7.0 cm infrarenal abdominal aortic aneurysm. Based on size criteria surgical repair was offered. We discussed both open and stent graft repair with advantages and disadvantages of each of the 2 options reviewed in great detail with the patient. Patient was a proceed with stent graft repair. All questions were answered patient's satisfaction. Consent form signed. Description of Procedure: Patient is brought to the special procedure suite. Patient was administered general endotracheal anesthesia delivered by the department anesthesiology. Watts catheter was placed to gravity drainage. The patient received 3 g of Ancef in the perioperative phase for prophylactic antibiotic therapy. Patient's abdomen, pelvis and anterior thigh areas were sterilely prepped and draped in usual manner. Utilizing ultrasound the right common femoral artery was identified. Micropuncture needle was utilized to cannulate the artery with ultrasound guidance. Guidewire was advanced. The needle was withdrawn and a micropuncture sheath and dilator advanced over the guidewire. The guidewire and dilator were withdrawn and through the micropuncture sheath a 0.035 inch guidewire was advanced. The needle was withdrawn and a 6-Colombian sheath was advanced over the guidewire. Similar procedure was performed on the contralateral side. On both sides 2 Perclose devices were successfully placed. Lunderquist wire was advanced from the right and positioned at the aortic knob. On the contralateral side a 5-Colombian pigtail catheter was advanced to the L1-L2 interspace. Based on previous measurements an Endurate II stent graft system size 28 mm x 14 mm x 103 mm was selected and advanced from the right. Angiogram was performed with marking of the main renal arteries bilaterally. Under roadmap guidance the main body stent graft was advanced to just below the takeoff of the lowest renal artery and deployed to the opening of the contralateral limb. Utilizing guidewire and angled glide catheter combination the contralateral limb was cannulated. In the catheter was advanced into the suprarenal segment and Lunderquist wire was then advanced through the catheter into the aortic knob. The catheter was withdrawn and a pigtail catheter was advanced over the wire. Left iliac angiogram was performed with notation made of the origin of the left internal iliac artery. Endurat II limb measuring 16 x 20 x 156 mm was selected. The sheath was removed and over the guidewire the limb was advanced and successfully deployed. The remainder the main body was deployed. The delivery device was exchanged for an Endurat II limb measuring 16 x 20 x 146 mm and successfully deployed after angiogram was utilized to identify the origin of the internal iliac artery. Compliant balloon was then utilized to balloon dilate the proximal and distal points of attachment as well as each overlapping stent graft segment. Pigtail catheter was then readvanced and completion angiogram was performed. A type IV endoleak was thought to be present although no type I or type III endoleak was noted. With the above findings noted beginning on the right sheath was withdrawn and utilizing the Perclose device the puncture wound was successfully closed. A similar procedures performed on the contralateral side. Patient tolerated the procedure well and awoke without apparent complication was transferred to the recovery areas estrogen stable condition. Palpable posterior tibial pulses were noted bilaterally which were present preoperatively. Total fluoroscopy time: 9.8 minutes. Total contrast volume: 70 ML's of Isovue.
[2022-11-20 14:40] LABS: Glucose,Whole Blood 128 mg/dL (70-110)
[2022-11-20] MEDS: SODIUM CHLORIDE 0.9% 1,000 ML in EMPTY BAG 1 BAG IV SCH (16:33)
[2022-11-20] MEDS: LACTATED RINGERS 1,000 ML IV SCH (16:33)
[2022-11-20 16:36] LABS: Glucose,Whole Blood 133 mg/dL (70-110)
[2022-11-20] MEDS ORDERED: DEXTROSE 50% SYRINGE 50 ML IVP PRN ×2 (16:37)
[2022-11-20] MEDS: ASPIRIN 81 MG PO SCH (16:41)
[2022-11-20] MEDS: SODIUM CHLORIDE 0.9% 1,000 ML IV SCH (16:41)
--- NOTE | 2022-11-20 16:48 | P.CONS ---
History of Present Illness - Reason for Consult Consult date: 11/20/22 - History of Present Illness Patient is a 62-year-old male with history of hypertension, dyslipidemia, frank betes presenting for elective AAA repair. [facility] physicians has been consulted for medical management. Currently patient is hemodynamically stable. CBC unremarkable, BMP unremarkable except for glucose ranging between 121-128. Pertinent positives and negatives as discussed in HPI, a complete review of systems was performed and all other systems are negative. Patient seen and examined at bedside. Vital signs reviewed General: nontoxic, no distress, appears at stated age Derm: warm, dry Head: atraumatic, normocephalic, symmetric Eyes: EOMI, no lid lag, anicteric sclera, pupils equal round reactive to light ENT: Nose and ears atraumatic Neck: No thyromegaly, supple Mouth: no lip lesion, mucus membranes moist Cardiovascular: S1S2 reg, no murmur, no edema Lungs: clear to auscultation bilateral, no rhonchi, no rales, no wheeze, no accessory muscle use Abdominal: soft, nontender to palpation, no guarding, no appreciable organomegaly Ext: no gross muscle atrophy, muscle strength muscle strength 5 out of 5 in all 4 extremities, no contractures Neuro: CN II-XII grossly intact Psych: Alert, oriented, appropriate affect Assessment/Plan: Status post AAA repair Hypertension Dyslipidemia Type 2 diabetes -Home medications reconciled, hold metformin, started on sliding scale insulin -Repeat CBC and BMP tomorrow -Rest of the care per vascular surgery team Thank you for allowing us to participate in the care of this pleasant patient. Do not hesitate to contact us with questions. Someone can be reached from the [facility] hospitalist group all hours of the day at [phone] or via [employer]. Past Medical History Past Medical History: Diabetes Mellitus, Hyperlipidemia, Hypertension Additional Past Medical History / Comment(s): DDD., pre-diabetic., AAA. History of Any Multi-Drug Resistant Organisms: None Reported Past Surgical History: Joint Replacement Additional Past Surgical History / Comment(s): left knee replacement, 4 previous left knee surgeries. Past Anesthesia/Blood Transfusion Reactions: No Reported Reaction Past Psychological History: No Psychological Hx Reported Smoking Status: Former smoker Past Alcohol Use History: Occasional Additional Past Alcohol Use History / Comment(s): quit smoking 20 yrs or more, h x of 1/2 ppd, started smoking in his 20's. Past Drug Use History: Marijuana Additional Drug Use History / Comment(s): occasional marijuana use - Past Family History Mother Family Medical History: Cancer Additional Family Medical History / Comment(s): brain cancer Medications and Allergies Home Medications Medication Instructions Recorded Confirmed Type Atorvastatin [Lipitor] 40 mg PO HS 10/15/22 11/20/22 History Ibuprofen [Motrin] 800 mg PO Q8H 10/15/22 11/20/22 History hydroCHLOROthiazide [Hydrodiuril] 25 mg PO DAILY 10/15/22 11/20/22 History lisinopriL [Zestril] 20 mg PO DAILY 10/15/22 11/20/22 History metFORMIN HCL 500 mg PO BID 10/15/22 11/20/22 History Allergies Allergy/AdvReac Type Severity Reaction Status Date / Time No Known Allergies Allergy Verified 11/17/22 13:43 Physical Exam Vitals: Vital Signs Temp Pulse Pulse Resp BP BP Pulse Ox 11/20/22 16:42 97.5 F L 76 18 166/77 96 11/20/22 15:53 71 14 138/70 96 11/20/22 15:38 74 14 137/56 95 11/20/22 15:23 80 14 139/59 93 L 11/20/22 15:08 85 14 137/59 98 11/20/22 14:53 83 14 135/60 99 11/20/22 14:38 84 16 134/59 100 11/20/22 14:23 80 16 121/54 99 11/20/22 14:08 97.0 F L 87 16 150/78 98 11/20/22 10:55 99.2 F 89 18 168/72 96 Intake and Output 11/20/22 11/20/22 11/20/22 06:59 14:59 22:59 Intake Total 1000 Output Total 300 Balance 700 Intake: IV 1000 Output: Urine 300 Other: Weight 138.8 kg Results CBC & Chem 7: 11/20/22 11:10 11/20/22 11:10 Labs: Abnormal Lab Results - Last 24 Hours (Table) 11/20/22 11/20/22 11/20/22 Range/Units 10:45 11:10 14:39 Glucose 121 H (74-99) mg/dL POC Glucose (mg/dL) 127 H 128 H (70-110) mg/dL 11/20/22 Range/Units 16:35 Glucose (74-99) mg/dL POC Glucose (mg/dL) 133 H (70-110) mg/dL
[2022-11-20] MEDS ORDERED: ACETAMINOPHEN TAB 325 MG TAB PO PRN (16:49)
[2022-11-20] MEDS: INSULIN ASPART (NovoLOG) 100 UNIT/ML VIAL SQ SCH ×2 (16:53→20:18)
[2022-11-20 20:20] LABS: Glucose,Whole Blood 138 mg/dL (70-110)
[2022-11-20] MEDS ORDERED: ATORVASTATIN 40 MG TAB PO SCH (21:00)
[2022-11-20] MEDS ORDERED: ATORVASTATIN 10 MG TAB PO SCH (21:00)
[2022-11-21] MEDS: SODIUM CHLORIDE 0.9% 1,000 ML in EMPTY BAG 1 BAG IV SCH ×2 (00:49→07:21)
[2022-11-21] MEDS: SODIUM CHLORIDE 0.9% 1,000 ML IV SCH (03:17)
[2022-11-21] MEDS: LACTATED RINGERS 1,000 ML IV SCH (03:18)
[2022-11-21 05:25] VITALS: RESP 18
[2022-11-21 06:14] LABS: Glucose,Whole Blood 126 mg/dL (70-110)
[2022-11-21] MEDS: INSULIN ASPART (NovoLOG) 100 UNIT/ML VIAL SQ SCH (06:15)
[2022-11-21] MEDS: ASPIRIN 81 MG PO SCH (07:30)
[2022-11-21] MEDS ORDERED: lisinopriL 20 MG TAB PO SCH (09:00)
[2022-11-21] MEDS ORDERED: hydroCHLOROthiazide 25 MG TAB PO SCH (09:00)
[2022-11-21 09:19] VITALS: BP 148/67; PULSE 85; TEMP 98.3
--- NOTE | 2022-11-21 10:24 | P.DS ---
Providers Date of admission: 11/20/22 10:07 Expected date of discharge: 11/21/22 Attending physician: Richmond Tarango DO Consults: 11/20/22 07:34 Consult to Anesthesia Routine Consulting Provider: Anesthesia,Services Consult Reason/Comments: General anesthesia for Aortic Stent procedure 11/20/22 14:53 Consult Physician Routine Consulting Provider: Joey Mead Consult Reason/Comments: medical management Do you want consulting provider notified?: Yes Primary care physician: Bayron Byrd MD Hospital Course: This is a 62-year-old male with a past medical history including hypertension, hyperlipidemia, diabetes mellitus and asymptomatic 7 cm infrarenal abdominal aortic aneurysm. Due to the size of the aneurysm, surgical repair was offered and patient came in for surgical repair yesterday. He is postop day #1 for percutaneous endovascular abdominal aortic aneurysm repair. He is without any complaints today. He denies any abdominal pain, chest pain, or shortness of breath. No pain down lower extremities. Has some slight discomfort in bilateral groins, and incision site. Incision site with dressing clean dry and intact, no hematoma noted. He has been up and ambulating. Watts catheter has been discontinued and he has voided several times. He has tolerated both his breakfast and dinner. Discharge instructions were discussed with both patient and his were at the bedside. Patient verbalizes understanding. He will follow-up with Dr. Coley in 10-14 days. Exam General appearance: The patient is alert, oriented, appears in no acute dis tress. HET: Head is normocephalic and atraumatic. Neck: Supple. Heart: Regular. Lungs: Equal expansion, normal respiratory effort. Abdomen: Soft, nontender, nondistended. Extremities: Normal skin color and turgor. Bilateral lower extremities warm to the touch with good capillary refill. PT pulses present. Bilateral groins with dressing clean dry and intact, no hematoma noted and no bleeding noted. Neurological: No focal deficits. Strength and sensation are grossly intact. Assessment 1. 7 cm infrarenal abdominal aortic aneurysm status post percutaneous endovascular abdominal aortic aneurysm repair 2. Hypertension 3. Hyperlipidemia 4. Diabetes mellitus Plan Discharge home. Discharge instructions reviewed with patient and and are in discharge plan. The impression and plan of care has been dictated as directed. Dr. Watts I performed a history and examination of this patient, discussed the same with the dictator. I agree with the dictator's note ,documented as a scribe. Any additional findings or plans will be noted. Procedures: Procedure(s) Performed: 1: Ultrasound-guided cannulation of the common femoral artery bilaterally with placement of Perclose device. 2: Placement of aorto by iliac endograft. Implants: Aortic endograft system, [employer] Patient Condition at Discharge: Stable Plan - Discharge Summary Discharge Rx Participant: Yes New Discharge Prescriptions: New Aspirin 81 mg PO DAILY tab Acetaminophen Tab [Tylenol] 650 mg PO Q6HR PRN tab PRN Reason: Fever And/ Or Pain Continue metFORMIN HCL 500 mg PO BID Ibuprofen [Motrin] 800 mg PO Q8H Atorvastatin [Lipitor] 40 mg PO HS lisinopriL [Zestril] 20 mg PO DAILY hydroCHLOROthiazide [Hydrodiuril] 25 mg PO DAILY Discharge Medication List Atorvastatin [Lipitor] 40 mg PO HS 10/15/22 [History] Ibuprofen [Motrin] 800 mg PO Q8H 10/15/22 [History] hydroCHLOROthiazide [Hydrodiuril] 25 mg PO DAILY 10/15/22 [History] lisinopriL [Zestril] 20 mg PO DAILY 10/15/22 [History] metFORMIN HCL 500 mg PO BID 10/15/22 [History] Acetaminophen Tab [Tylenol] 650 mg PO Q6HR PRN tab 11/21/22 [Rx] Aspirin 81 mg PO DAILY tab 11/21/22 [Rx] Follow up Appointment(s)/Referral(s): Richmond Tarango DO [Doctor of Osteopathic Medicine] - 2 Weeks Patient Instructions/Handouts: Endovascular Aneurysm Repair of Abdominal Aorta (DC) Activity/Diet/Wound Care/Special Instructions: No driving for 2-3 days. Avoid heavy lifting greater than 20 lbs , pushing, pulling, straining, flights of stairs for three days. ok to shower tomorrow but no baths, pools, soaking in tubs for 7 days to avoid risk of infection. signs of infection ie: fever, rash, drainage from puncture site, swelling contact doctor or return to ER immediately. Heavy bleeding from puncture site apply firm direct pressure and return to ER. Do not attempt to drive self. low sodium/low fat diet Discharge Disposition: HOME SELF-CARE
--- NOTE | 2022-11-21 13:44 | IR ---
EXAMINATION TYPE: IR endorepair dscnd thor aorta DATE OF EXAM: 11/20/2022 COMPARISON: 10/15/2022 HISTORY: AAA, 9.8 minutes fluoroscopy time, 394 Gycm2 DAP. Total air Kerma 855 mGy. Fluoroscopy was provided to the referring clinician.
--- NOTE | 2022-11-21 14:07 | P.PN ---
Subjective Progress Note Date: 11/21/22 Subjective: She is seen and examined at bedside. No acute events overnight. Pertinent positives and negatives as discussed above, a complete review of systems was performed and all other systems are negative. Vitals Signs Reviewed. General: nontoxic, no distress, appears at stated age, morbidly obese Derm: warm, dry, dressing clean, dry, intact Head: atraumatic, normocephalic, symmetric Eyes: EOMI, no lid lag, anicteric sclera Mouth: no lip lesion, mucus membranes moist Cardiovascular: S1S2 reg, no murmur Lungs: CTA bilateral, no rhonchi, no rales , no accessory muscle use Abdominal: soft, nontender to palpation, no guarding, no appreciable organomegaly Ext: no gross muscle atrophy, no edema, no contractures Neuro: CN II-XI grossly intact, no focal neuro deficits Psych: Alert, oriented, appropriate affect Data Reviewed Today: Pertinent Labs: Blood sugars range between 126-128 Imaging: No new imaging Assessment and Plan: Status post AAA repair Hypertension Dyslipidemia Type 2 diabetes -Home medications reconciled, hold metformin, on sliding scale insulin -Rest of the care per vascular surgery team -Vascular surgery note reviewed, patient being discharged Patient is medically optimized for discharge home Thank you for allowing us to participate in the care of this pleasant patient. Do not hesitate to contact us with questions. Someone can be reached from the [facility] hospitalist group all hours of the day at [phone] or via [employer]. Objective - Vital Signs Vital signs: Vital Signs Temp 98.3 F 11/21/22 08:00 Pulse 85 11/21/22 08:00 Resp 18 11/21/22 08:00 BP 148/67 11/21/22 08:00 Pulse Ox 96 11/21/22 08:00 FiO2 Intake & Output 11/20/22 11/21/22 11/21/22 18:59 06:59 18:59 Intake Total 2320 240 Output Total 300 Balance 2019 240 Weight 138.8 kg Intake: IV 1000 Oral 1320 240 Output: Urine 300 Other: # Voids 1 - Labs CBC & Chem 7: 11/20/22 11:10 11/20/22 11:10 Labs: Abnormal Lab Results - Last 24 Hours (Table) 11/20/22 11/20/22 11/20/22 Range/Units 14:39 16:35 20:18 POC Glucose (mg/dL) 128 H 133 H 138 H (70-110) mg/dL 11/21/22 Range/Units 06:12 POC Glucose (mg/dL) 126 H (70-110) mg/dL
== END 2022-11-21 10:46 | disposition home or self-care (01) | DRG 269 ==
LOC: 2ORMAIN 10:07 → 3SCARD 15:44
PROVIDERS: ADMIT Surgery; ATTEND Surgery
PROC: 04V03DZ Restriction of Abdominal Aorta with Intraluminal Device, Percutaneous Approach (ICD-10-PCS; principal; 2022-11-20 11:30)
DX: I71.43 Infrarenal abdominal aortic aneurysm, without rupture (principal); Z68.41 Body mass index [BMI] 40.0-44.9, adult; E66.01 Morbid (severe) obesity due to excess calories; E11.9 Type 2 diabetes mellitus without complications; I10 Essential (primary) hypertension; E78.5 Hyperlipidemia, unspecified; Z96.652 Presence of left artificial knee joint; Z87.891 Personal history of nicotine dependence; Z79.899 Other long term (current) drug therapy; Z79.1 Long term (current) use of non-steroidal anti-inflammatories (NSAID); Z79.84 Long term (current) use of oral hypoglycemic drugs
CPT/HCPCS: 34705; 80048; 83036; 85025; 86850; 86900; 86901

== ENCOUNTER → 2022-12-18 | Outpatient (CLI) | payer MEDICARE, OTHER ==
[2022-12-18 13:47] LABS: African American GFR (CKD) >90 (>60 ml/min/1.73 sqM); Blood Urea Nitrogen 21 mg/dL (9-20); Non-African American GFR(CKD) 82 (>60 ml/min/1.73 sqM)
--- NOTE | 2022-12-18 15:11 | CT ---
EXAMINATION TYPE: CT angio abdomen pelvis CT DLP: 4364.9 mGycm, Automated exposure control for dose reduction was used. DATE OF EXAM: 12/18/2022 2:46 PM COMPARISON: 10/15/2022. CLINICAL INDICATION:Male, 62 years old with history of I71.4 ABDOMINAL AORTIC ANEURYSM; PHH, f/u AAA with stents placed TECHNIQUE: Multiple thin slice sub-millimeter images were obtained through the abdomen, pelvis, after administration of contrast. 3-D reconstructed images and maximum intensity projection images were o btained of the abdomen, pelvis. CT Contrast: Contrast used:100 mL of Isovue 370 without and with IV Contrast, Oral contrast used: without Oral Contrast None FINDINGS: CTA Abdomen and pelvis: No evidence of intramural hematoma on noncontrast imaging. Aortobiiliac stent graft is present. The excluded lumen measures up to 6.6 x 6.2 cm. No evidence for endoleak. The shaun t appears patent. No evidence for intimal flap to suggest dissection. Scattered mild atherosclerotic disease present. The visualized portions of the major vessels of the aorta are patent. LOWER CHEST: No evidence of focal consolidation, pneumothorax or pleural effusion. LIVER: Unremarkable GALLBLADDER AND BILE DUCTS: Unremarkable. PANCREAS: Unremarkable. SPLEEN: Unremarkable. ADRENAL GLANDS: Unremarkable. KIDNEYS AND URETERS: No evidence of hydronephrosis or renal calculus. The ureters are unremarkable. B ilateral renal cysts. One left renal cortical cyst with thin peripheral calcification is present. PELVIS BLADDER: Unremarkable REPRODUCTIVE: Unremarkable. ABDOMEN & PELVIS STOMACH AND BOWEL: No evidence of bowel obstruction. PERITONEUM: No evidence of pneumoperitoneum or free fluid. VASCULATURE: No evidence of aortic aneurysm. MUSCULOSKELETAL: No acute osseous abnormalities, multilevel disc degeneration changes throughout the spine worse at the lower lumbar spine with pseudoarthrosis of the spinous processes. Osteophytes disc space narrowing and facet joint arthropathy are present. LYMPH NODES: No gross evidence for lymphadenopathy. SOFT TISSUE/ABDOMINAL WALL: Bilateral fat-containing inguinal hernias. The appendix is normal. Fat-co ntaining umbilical hernia. IMPRESSION 1. Aortobiiliac stent graft in place without evidence for endoleak. 2. No evidence of vascular occlusion. 3. Mild atherosclerotic disease involving abdominal aorta. 4. Bilateral Bosniak type I and type II cyst.
== END | disposition home or self-care (01) ==
LOC: RADCTMAIN 13:11
PROVIDERS: ATTEND Surgery
DX: I71.40 Abdominal aortic aneurysm, without rupture, unspecified (principal); I70.0 Atherosclerosis of aorta; N28.1 Cyst of kidney, acquired; Z95.5 Presence of coronary angioplasty implant and graft
CPT/HCPCS: 82565; 84520; 36415; 74174; Q9967

== ENCOUNTER → 2023-10-14 | Outpatient (CLI) | payer MEDICARE, OTHER ==
--- NOTE | 2023-10-14 17:32 | XR ---
EXAMINATION TYPE: XR Hip Complete RT DATE OF EXAM: 10/14/2023 COMPARISON: None HISTORY: Pain TECHNIQUE: 2 view right hip FINDINGS: There is moderate narrowing of the right hip joint space. No acute fracture or dislocation is evident. IMPRESSION: 1. Moderate degenerative joint changes right hip
== END | disposition home or self-care (01) ==
LOC: RADXRMAIN 09:49
PROVIDERS: ATTEND Family Medicine
DX: M16.11 Unilateral primary osteoarthritis, right hip (principal)
CPT/HCPCS: 73502